=== PATIENT | female | born 1950 | race Caucasian/White ===

== ENCOUNTER → 2017-01-24 16:38 | Outpatient (CLI) | payer MEDICARE, OTHER ==
[2013-03-23 11:32] VITALS: BMI 38.5
[~2017-01-24 16:38] MED LIST: KLONOPIN0.5 MG PO; NORCO 10/325 TA1 TA1 PO; PRILOSEC20 MG PO; PROZAC40 MG PO
== END | disposition home or self-care (01) ==
LOC: D.MAMMO 14:30
DX: Z12.31 Encounter for screening mammogram for malignant neoplasm of breast (principal)

== ENCOUNTER → 2017-11-25 11:09 | Outpatient (CLI) | payer MEDICARE, OTHER ==
[2013-03-23 11:32] VITALS: BMI 38.5
== END | disposition home or self-care (01) ==
LOC: D.CT 11:09
DX: R10.9 Unspecified abdominal pain (principal)

== ENCOUNTER → 2017-12-24 14:30 | Outpatient (CLI) | payer MEDICARE, OTHER ==
[2013-03-23 11:32] VITALS: BMI 38.5
== END | disposition home or self-care (01) ==
LOC: D.MRI 14:30
DX: M25.512 Pain in left shoulder (principal)

== ENCOUNTER → 2018-02-11 20:19 | Outpatient (CLI) | payer MEDICARE, OTHER ==
[2013-03-23 11:32] VITALS: BMI 38.5
== END | disposition home or self-care (01) ==
LOC: D.MAMMO 01-22 15:15
DX: Z12.31 Encounter for screening mammogram for malignant neoplasm of breast (principal)